=== PATIENT | female | born 1980 | race African-American/Black ===

== ENCOUNTER 2022-08-10 07:54 | Day surgery (SDC) | payer BC, OTHER ==
[2022-08-05 10:59] VITALS: BMI 36.2
[2022-08-09 09:10] LABS: Hemoglobin 10.7 g/dL (12.0-15.5); Mean Corpuscular HGB CONC 31.8 g/dL (32.0-36.0); Mean Corpuscular Hemoglobin 22.5 pg (27.0-33.0); Mean Corpuscular Volume 70.6 fl (81.6-98.3); Mean Platelet Volume 10.4 fl (7.4-10.4); Platelet Count 249 10x3/uL (150-450); RBC Distribution Width 15.1 % (11.5-14.5); Red Blood Cell (RBC) Count 4.76 10x6/uL (3.90-5.03); White Blood Cell (WBC) Count 10.2 10x3/uL (3.5-10.5)
[2022-08-09 09:15] LABS: BHCG - Serum Negative (NEGATIVE); Pregs Control Background? CLEAR/WHITE (CLR/WHITE); Pregs Control Bar Appear? YES (CONTROL BAR)
[2022-08-10] MEDS ORDERED: CeleCOXIB 100 MG CAP ONE (08:15)
[2022-08-10] MEDS ORDERED: Gabapentin 300 MG CAP ONE ×2 (08:15→09:02)
[2022-08-10] MEDS ORDERED: Famotidine/PF 20 mg/2ml Vial ONE (08:16)
[2022-08-10] MEDS ORDERED: Ondansetron PF 4 MG/2 ML Vial ONE ×2 (09:04→10:23)
[2022-08-10] MEDS ORDERED: Bupivacaine PF 0.5% 30 ML VIAL ONE (10:18)
[2022-08-10] MEDS ORDERED: EPINEPHrine 1 MG/ML AMP ONE (10:18)
[2022-08-10] MEDS ORDERED: Lidocaine 1% PF 5 ML VIAL ONE (10:23)
[2022-08-10] MEDS ORDERED: Glycopyrrolate 0.2 MG/ML 5 ML SYRINGE ONE (10:23)
[2022-08-10] MEDS ORDERED: Fentanyl 250 MCG/5 ML VIAL ONE (10:23)
[2022-08-10] MEDS ORDERED: Midazolam HCl 2 mg/2 ml Vial ONE ×2 (10:23)
[2022-08-10] MEDS ORDERED: Rocuronium Bromide 10 MG/ML (10ML VIAL) ONE (10:23)
[2022-08-10] MEDS ORDERED: PROPOFOL 20 ML ONE ×2 (10:23→11:11)
[2022-08-10] MEDS ORDERED: Ketorolac Tromethamine 30 MG/ML VIAL ONE (10:23)
[2022-08-10] MEDS ORDERED: Dexamethasone 20 MG/5 ML VIAL ONE (10:23)
[2022-08-10] MEDS ORDERED: CEFAZOLIN 2 GM VIAL ONE (10:32)
[2022-08-10] MEDS ORDERED: Meperidine HCl/PF 25 MG/ML VIAL ONE (12:50)
== END 2022-08-10 15:10 | disposition home or self-care (01) ==
LOC: CSHSDC 07:54
PROVIDERS: ATTEND Obstetrics & Gynecology
PROC: 0UT94ZZ Resection of Uterus, Percutaneous Endoscopic Approach (ICD-10-PCS; principal; 2022-08-10)
PROC: 0UT74ZZ Resection of Bilateral Fallopian Tubes, Percutaneous Endoscopic Approach (ICD-10-PCS; principal; 2022-08-10)
DX: D25.9 Leiomyoma of uterus, unspecified (principal); N88.8 Other specified noninflammatory disorders of cervix uteri; N83.8 Other noninflammatory disorders of ovary, fallopian tube and broad ligament; N80.03 Adenomyosis of the uterus; N73.6 Female pelvic peritoneal adhesions (postinfective); N92.0 Excessive and frequent menstruation with regular cycle; I10 Essential (primary) hypertension; Z79.899 Other long term (current) drug therapy; Z90.49 Acquired absence of other specified parts of digestive tract; Z98.51 Tubal ligation status
CPT/HCPCS: 84703; 85027; 86850; 86900; 86901; 88307; J0171; J1100; J1885; J2175; J2250; J2405; J2704; J3010; S0020; S0028

== ENCOUNTER 2023-02-23 21:41 | Emergency (ER) | payer BC, OTHER | END 2023-02-23 22:33 | disposition home or self-care (01) | LOC: CSHERS 21:41 | DX: M25.531 Pain in right wrist (principal); I10 Essential (primary) hypertension; K21.9 Gastro-esophageal reflux disease without esophagitis; W18.30XA Fall on same level, unspecified, initial encounter; Z79.899 Other long term (current) drug therapy ==